=== PATIENT | male | born 1935 | race Caucasian/White ===

== ENCOUNTER 2017-07-16 20:14 | Emergency (ER) | payer BC ==
[2017-07-16] MEDS ORDERED: IBUPROFEN 600 MG TABLET PO ONE (20:50)
--- NOTE | 2017-07-16 20:52 | Emergency Department Record ---
History of Present Illness - General Chief complaint: Head Injury Stated complaint: TREE BRANCH HIT IN HEAD Time Seen by Provider: 07/16/17 20:47 Source: Patient Mode of Arrival: Wheelchair Limitations: No limitations - History of Present Illness Initial comments: 81 yo male presents to ED for evaluation following an injury to the head while mowing the grass this evening. Patient reports that he was struck in the forehead with a tree branch, denies LOC or neck pain symptoms. Patient denies the use of anticoagulation medications as well. Patient denies pain numbness, tingling, or weakness to the extremities on examination. Patient does report small laceration over the left eyebrow region. Complaint: Head injury Onset/Timin -: Hour(s) Mechanism of Injury: Other (Working outdoors) Location: Face Loss of Consciousness: No Previous Trauma to this Area: No Place: Home Radiation: None Severity: Mild Quality: Aching Consistency: Constant Provoking factors: None known Other Injuries: None Context: On Aspirin Associated Symptoms: Denies other symptoms - Related Data Home Medications Medication Instructions Recorded Confirmed Last Taken Aspirin Chewable 81 mg PO NOW 07/16/17 07/16/17 Unknown Allergies/Adverse reactions: Allergies Allergy/AdvReac Type Severity Reaction Status Date / Time amoxicillin Allergy Unknown Unverified 03/10/17 14:39 Travel Screening - Travel/Exposure Within Last 30 Days Have you traveled within the last 30 days?: No - Travel/Exposure Within Last Year Have you traveled outside the [place] in the last year?: No - Additonal Travel Details Have you been exposed to anyone with a communicable illness?: No - Travel Symptoms Symptom Screening: None Review of Systems Constitutional: Denies: Chills, Fever, Malaise, Night sweats Eyes: Denies: Eye discharge, Eye pain, Photophobia ENT: Denies: Congestion, Ear pain, Epistaxis Respiratory: Denies: Cough, Dyspnea Cardiovascular: Denies: Chest pain, Dyspnea on exertion Endocrine: Denies: Fatigue, Heat or cold intolerance Gastrointestinal: Denies: Abdominal pain, Nausea, Vomiting Genitourinary: Denies: Incontinence, Retention Musculoskeletal: Denies: Arthralgia, Back pain, Gout, Joint swelling Skin: Reports: Bruising (over left forehead/left sammy-orbital region). Denies: Change in color, Change in hair/nails Neurological: Reports: Headache. Denies: Abnormal gait, Confusion, Seizure Psychiatric: Denies: Anxiety Hematological/Lymphatic: Denies: Anemia, Blood Clots Past Medical History - SOCIAL HISTORY Smoking Status: Former smoker Alcohol Use: None Drug Use: None - RESPIRATORY Hx Respiratory Disorders: Yes Hx Sleep Apnea: Yes Hx of CPAP: Yes (DOESNT USE IT) - CARDIOVASCULAR Hx Cardio Disorders: Yes Hx Hypertension: Yes (CONTROLLED) - NEURO Hx Neuro Disorders: No - GI Hx GI Disorders: Yes Hx Diverticulitis: Yes (NEVER A PROBLEM) Hx Reflux: Yes Hx of Polyps: Yes (COLON) - Hx Genitourinary Disorders: No - ENDOCRINE Hx Endocrine Disorders: No - MUSCULOSKELETAL Hx Musculoskeletal Disorders: Yes Hx Arthritis: Yes (RT HAND) Comment:: RECENT LF RIB INJURY STATES BRUISED - PSYCH Hx Psych Problems: No - HEMATOLOGY/ONCOLOGY Hx Hematology/Oncology Disorders: No Family Medical History Any Significant Family History?: No Physical Exam - General General Appearance: Alert, Oriented x3, Cooperative, Moderate distress Limitations: No limitations - Head Head exam: Other Head exam detail: Abrasion, Contusion, Laceration, Other (0.5 cm laceration over the left eyebrow region, mild ecchymosis over the left upper eyelid, EOMI on examination.). negative: Hematoma - Eye Eye exam: negative: Conjunctival injection, Periorbital swelling, Periorbital tenderness, Scleral icterus - ENT Ear exam: negative: Auricular hematoma, Auricular trauma Nasal Exam: negative: Active bleeding, Discharge, Dried blood, Foreign body Mouth exam: negative: Drooling, Laceration, Muffled voice, Tongue elevation - Neck Neck exam: Normal inspection. negative: Meningismus, Tenderness - Respiratory Respiratory exam: Normal lung sounds bilaterally. negative: Rales, Respiratory distress, Rhonchi, Stridor - Cardiovascular Cardiovascular Exam: Regular rate, Normal rhythm, Normal heart sounds - GI/Abdominal GI/Abdominal exam: Soft. negative: Rebound, Rigid, Tenderness - Rectal Rectal exam: Deferred - exam: Deferred - Extremities Extremities exam: Normal inspection. negative: Calf tenderness, Pedal edema, Tenderness - Back Back exam: Denies: CVA tenderness (R), CVA tenderness (L) - Neurological Neurological exam: Alert, Normal gait, Oriented X3 - Psychiatric Psychiatric exam: Normal affect, Normal mood - Skin Skin exam: Abrasion, Other (As stated above) Type of lesion: abrasion Course Vital Signs 07/16/17 20:18 Temperature 98.2 F Pulse Rate [ 84 Pulse Ox Probe] Respiratory 20 Rate Blood Pressure 134/84 [Left Arm] Pulse Ox 97 - Reevaluation(s) Reevaluation #1: 07/16/17 21:18 Procedure Note: 1.0 cm laceration over the left eyebrow, bleeding controlled. Wound was cleaned and prepped in sterile fashion, no residual FB identified on examination. Laceration was repaired with Dermabond solution without complications. Patient tolerated the procedure well. Reevaluation #2: 07/16/17 21:31 CT Brain: No acute intra-cranial injury identified STS over the left frontal region Patient was updated on his radiograph result, appears stable for discharge at this time. Disposition Disposition: Discharge Clinical Impression: Forehead laceration Qualifiers: Encounter type: initial encounter Qualified Code(s): S01.81XA - Laceration without foreign body of other part of head, initial encounter Head injury Qualifiers: Encounter type: initial encounter Qualified Code(s): S09.90XA - Unspecified injury of head, initial encounter Disposition: Home, Self-Care Condition: (2) Stable Instructions: Skin Adhesive Care (ED) Additional Instructions: Return to ED if your symptoms worsen or if you have any concerns. Dermabond will release in 3-5 days. Follow-up with your family doctor in 3-5 days as directed. Forms: Patient Portal Access Time of Disposition: 21:28 Quality - Quality Measures Quality Measures: N/A, Blunt Head Trauma (>2yr) - [place] Coma Scale [place] Coma Scale: [place] Coma Scale Eye Response: (4) Open spontaneously Motor Response: (6) Obeys commands Verbal Response: (5) Oriented [place] Total: 15 - Blunt Head Trauma - Adult Quality Measure: Measure #415: Utilization of CT for Minor Blunt Head Trauma ICD10 Codes Entered: Yes Was CT ordered: Yes Does Patient Have Any of the Following: No Exclusions Patient Presented Within 24 Hours of Injury: Yes [place] Score: [address] for Minor Blunt Head Trauma: < CT Done, Appropriate Indication > [G9529] Additional Inclusion Criteria: Within 24hrs (AND) GCS of 15 (AND) CT ordered. [ G9530] Indications For CT: Age 65 Years and Older - Blood Pressure Screening Does Patient Have Any of the Following: No Blood Pressure Classification: Pre-Hypertensive BP Reading Systolic Measurement: 134 Diastolic Measurement: 84 Screening for High Blood Pressure: < Pre-Hypertensive BP, F/U Documented > [ G8950] Pre-Hypertensive Follow-up Interventions: Referral to alternative/primary care provider.
--- NOTE | 2017-07-18 23:57 | CT SCAN REPORT ---
EXAM: CT SCAN HEAD WO CONTRAST HISTORY: BRANCH HIT HEAD. TECHNIQUE: Helical CT scan of the head obtained without intravenous contrast. HAND DOMINANCE: Unknown. COMPARISON: None. FINDINGS: Mild central and peripheral cerebral atrophy, which may be age- appropriate. Ventricles are slightly prominent. No mass effect or midline shift. No evidence of major vessel infarction. No hemorrhage or extraaxial fluid collection. Calvarium is intact. Left frontal scalp soft tissue swelling is present. Minimal mucosal thickening of both maxillary sinuses. IMPRESSION: NO ACUTE INTRACRANIAL ABNORMALITY. JOB NUMBER: [id number] [facility]
== END 2017-07-16 21:46 | disposition home or self-care (01) ==
LOC: ER 20:14
DX: S00.93XA Contusion of unspecified part of head, initial encounter (principal); S01.112A Laceration without foreign body of left eyelid and periocular area, initial encounter; S09.90XA Unspecified injury of head, initial encounter; I10 Essential (primary) hypertension; Z87.891 Personal history of nicotine dependence; W22.8XXA Striking against or struck by other objects, initial encounter; Y93.H9 Activity, other involving exterior property and land maintenance, building and construction; Y92.007 Garden or yard of unspecified non-institutional (private) residence as the place of occurrence of the external cause
CPT/HCPCS: 70450; 99283; 99284